=== PATIENT | female | born 1945 | race Caucasian/White ===

== ENCOUNTER → 2017-07-18 | Day surgery (SDC) | payer OTHER ==
[~2017-07-18] VITALS: Ht 152.4 cm; Wt 89.1 kg
[~2017-07-18] MED LIST: ALEN1TAB48 PO; ASPI-183 PO; ASPI81CH7 CHEW; ATOR80TA45 PO; BUPIVACAINE/EPINEPHRINE 0.25% PF 30 ML VIAL ONE; CALC250T PO; CHLORHEXIDINE GLUCONATE 2 % 1 PACK (2 CLOTHS) TOPICAL PRN; DULO1CAP3 PO; ERYTHROMYCIN 0.5% OPTH OINT 1 GM TUBO ONE; ERYTHROMYCIN 0.5% OPTH OINT 3.5 GM TUBO LEFT EYE ONE; FENO160T PO; GABA600T PO; LACTATED RINGER'S 1000 ML IV PRN; LIDOCAINE 1%/EPINEPHrine 1:100,000 SOLN 50 ML VIAL ONE; LIDOCAINE HCL 1% 50 ML VIAL ONE; LIDOCAINE HCL 1% PF 5 ML SYRINGE OTHER ONE; METF500T4 PO; METO25TA3 PO; METOPROLOL TARTRATE 25 MG TAB PO PRN; MIDAZOLAM HCL 2 MG/2 ML VIAL IV ONE; POVIDONE IODINE 5% (ANTISEPSIS KIT) 4 APPLICATIONS EACH NARE PRN; PROPOFOL 500 MG/50 ML INJ 50 ML ONE; SODIUM BICARBONATE 8.4% INJ 0 ML ONE; SODIUM CHLORID 0.9% 500 ML IV PRN; TETRACAINE 0.5% OPTH SOLN 4 ML BTL LEFT EYE ONE; TRAM50TA PO; VANCOMYCIN HCL 1000 MG ON-CALL/NS 250 ML IV SCH; VENTAER INH; VITA100052 PO; VITA500T35 PO; WOMETAB5 PO
--- NOTE | 2017-07-18 11:03 | EKG ---
Date Performed: 07/18/2017 Time Performed: 09:21:17 PTAGE: 72 years EKG: SINUS BRADYCARDIA LOW QRS VOLTAGE IN PRECORDIAL LEADS ANTEROSEPTAL MYOCARDIAL INFARCTION , OF INDETERMINATE AGE ABNORMAL ECG NO PREVIOUS TRACING DOCTOR: Olegario Pineda Interpretating Date/Time 07/18/2017 11:03:00
--- NOTE | 2017-07-18 12:13 | HHI.PR ---
cc: Luke Vogt MD Immediate Post Op Note Procedure Date: Jul 18, 2017 Pre Op Diagnosis: Left temporal headache Post Op Diagnosis: Same Surgeon: Luke Vogt Rooming House Operator(s): None Procedure: Left temporal artery biopsy Complications: None Specimen(s) removed: Left temporal artery to pathology Estimated blood loss: 5 ml Anesthesia: TIVA Drains: None IVF (200 ml) Patient to: PACU Patient Condition: Good Date/Time of Procedure: SEE SURGICAL CARE RECORD Luke Vogt MD Jul 18, 2017 12:13
[2017-07-18 13:50] VITALS: BP 175/62; PULSE 52; RESP 16; TEMP 97.5; O2SAT 99
--- NOTE | 2017-07-19 08:34 | MP ---
cc: GUANAKO VOGT M.D. DATE OF SURGERY 07/18/2017 PROCEDURE Left temporal artery biopsy. PREOPERATIVE DIAGNOSIS Left temporal headaches, rule out temporal arteritis. POSTOPERATIVE DIAGNOSIS Left temporal headaches, rule out temporal arteritis with visual disturbances. ANESTHESIA TIVA SURGEON Guanako Vogt MD ESTIMATED BLOOD LOSS 5 mL FLUIDS 200 mL crystalloid COMPLICATIONS None DRAINS None SPECIMEN Left temporal artery biopsy specimen to pathology. PROCEDURE IN DETAIL The patient was taken to the operating room after the left side was marked by the undersigned and confirmed by the patient in same-day surgery. She was placed on the operating table in the supine position. The left temporal region was shaved, prepped and draped. Time-out was taken confirming the correct patient site and procedure to be performed. Skin and subcutaneous tissue was infiltrated with local anesthetic and a longitudinal incision was made approximately 1-1/2-2 cm anterior to the ear. This was after confirmation of a pulsatile mass by Doppler. Dissection was carried down to the temporal artery which was able to be easily visualized and was confirmed by the Doppler to have arterial flow through it. The artery was dissected out of its three affiliated bed and proximally and distally was tied off with 3-0 silk suture. The artery was then sharply excised and passed off the table. The wound was reinspected and found to be hemostatic. The wound was then closed in two layers with interrupted 3-0 Vicryl suture and 5-0 PDS in a running subcuticular fashion. The wound was dressed with Steri-Strips and the patient was taken back to same-day surgery in stable condition. She tolerated the procedure well. Sponge, needle and instrument counts were reported to be correct. MD PÉREZ Cardona/DJL /7:00 PM /8:34 AM
== END | disposition home or self-care (01) ==
LOC: HSDC 08:56
PROVIDERS: ATTEND Surgery Trauma Surgery
DX: R51 Headache (principal); H53.9 Unspecified visual disturbance; I25.10 Atherosclerotic heart disease of native coronary artery without angina pectoris; E11.40 Type 2 diabetes mellitus with diabetic neuropathy, unspecified; E78.00 Pure hypercholesterolemia, unspecified; Z85.3 Personal history of malignant neoplasm of breast; Z01.810 Encounter for preprocedural cardiovascular examination
CPT/HCPCS: 37609; 88305; 93005; J3370; J7050; J7120; 88304; J2250; J3010